=== PATIENT | female | born 1965 | race Caucasian/White ===

== ENCOUNTER → 2017-02-24 07:01 | Day surgery (SDC) | payer SELFPAY ==
[~2017-02-24 07:01] MED LIST: Bacitracin IV* 50,000 UNITS INJ ONE; Buffered Lidocaine 1% SYRIN* 3 ML/SYR SYRINGE INTRADERM ONE; Dexamethasone IV* 4 MG/ML 1 ML (4 MG) ONE; DiMENhydriNATE IV* 50 MG/ML VIAL IV PUSH PRN; Famotidine IV* 10 MG/ML 2 ML (20 mg) IV ONE; Famotidine IV* 10 MG/ML 2 ML (20 mg) ONE; Gentamicin ADULT (*) 40 MG/ML VIAL ONE; HYDROcodone/ACETAMIN 5-325 MG* 1 TAB ONE; HYDROmorphone* 1 MG/ML 1 ML SYR IV PRN; KETAMINE HCL* 50 MG/ML 10 ML VIAL ONE; Lidocaine 1% INJ* 10 MG/ML 30 ML SDV ONE; Lidocaine 2% PF* 5 ML VIAL ONE; Midazolam* 1 MG/ML 2 ML VIAL (2 MG) ONE; Ondansetron INJ* 2 MG/ML VIAL ONE; Propofol* 10 MG/ML 20 ML BTL IV PUSH ONE; Propofol* 500 MG/50 ML BTL ONE; Scopolamine 1.5 mg* PATCH ONE; ceFAZolin 2 GM PREMIX(*) 2 GM/50 ML BAG IVPB ONE; ceFAZolin VIAL(*) 1 GM VIAL ONE; fentaNYL* 50 MCG/ML 2 ML VIAL (100 MCG VIAL) IV PRN; fentaNYL* 50 MCG/ML 2 ML VIAL (100 MCG VIAL) ONE
[2017-02-24] MEDS: Dexamethasone IV* 4 MG/ML 1 ML (4 MG) IV SLOW PU ONE ×2 (07:29→07:45)
[2017-02-24 13:54] VITALS: BP 128/84
== END | disposition home or self-care (01) ==
LOC: OREAST 07:01
PROVIDERS: ATTEND Plastic Surgery
DX: Z41.1 Encounter for cosmetic surgery (principal); I34.1 Nonrheumatic mitral (valve) prolapse
CPT/HCPCS: A9270-GY; J0690; J1100; J1580; J2001; J2250; J2405; J2704; J3010

== ENCOUNTER 2018-01-19 06:35 | Day surgery (SDC) | payer SELFPAY ==
[~2018-01-19 06:35] MED LIST changes: -Bacitracin IV* 50,000 UNITS INJ ONE; +Buffered Lidocaine 0.9% SYRIN* 5 ML/SYR SYRINGE INTRADERM ONE; -Buffered Lidocaine 1% SYRIN* 3 ML/SYR SYRINGE INTRADERM ONE; -Dexamethasone IV* 4 MG/ML 1 ML (4 MG) ONE; -DiMENhydriNATE IV* 50 MG/ML VIAL IV PUSH PRN; -Gentamicin ADULT (*) 40 MG/ML VIAL ONE; -HYDROcodone/ACETAMIN 5-325 MG* 1 TAB ONE; -HYDROmorphone* 1 MG/ML 1 ML SYR IV PRN; -KETAMINE HCL* 50 MG/ML 10 ML VIAL ONE; -Lidocaine 1% INJ* 10 MG/ML 30 ML SDV ONE; -Lidocaine 2% PF* 5 ML VIAL ONE; -Midazolam* 1 MG/ML 2 ML VIAL (2 MG) ONE; -Ondansetron INJ* 2 MG/ML VIAL ONE; -Propofol* 10 MG/ML 20 ML BTL IV PUSH ONE; -Propofol* 500 MG/50 ML BTL ONE; -Scopolamine 1.5 mg* PATCH ONE; -ceFAZolin 2 GM PREMIX(*) 2 GM/50 ML BAG IVPB ONE; -ceFAZolin VIAL(*) 1 GM VIAL ONE; -fentaNYL* 50 MCG/ML 2 ML VIAL (100 MCG VIAL) IV PRN; -fentaNYL* 50 MCG/ML 2 ML VIAL (100 MCG VIAL) ONE
[2018-01-19] MEDS ORDERED: Scopolamine 1.5 mg* PATCH ONE (06:43)
[2018-01-19] MEDS ORDERED: Ondansetron INJ* 2 MG/ML VIAL ONE (06:43)
[2018-01-19] MEDS ORDERED: Dexamethasone IV* 4 MG/ML 1 ML (4 MG) ONE (06:43)
[2018-01-19] MEDS ORDERED: ceFAZolin 2 GM PREMIX (*) 2 GM/50 ML BAG IVPB ONE (06:43)
[2018-01-19] MEDS ORDERED: Midazolam* 1 MG/ML 5 ML VIAL (5 MG) ONE (07:22)
[2018-01-19] MEDS ORDERED: fentaNYL* 50 MCG/ML 2 ML VIAL (100 MCG VIAL) ONE ×3 (07:22→11:11)
[2018-01-19] MEDS ORDERED: Bupivacaine 0.25% SDV* 30 ML ONE (07:31)
[2018-01-19] MEDS ORDERED: Lidocaine 1% MPF wEPI 200,000* 30 ML SDV ONE (07:32)
[2018-01-19] MEDS ORDERED: Propofol* 10 MG/ML 20 ML BTL IV PUSH ONE (07:48)
[2018-01-19] MEDS ORDERED: Lidocaine 2% PF * 5 ML VIAL ONE (07:48)
[2018-01-19] MEDS ORDERED: DiMENhydriNATE IV* 50 MG/ML VIAL IV PUSH PRN (09:51)
[2018-01-19] MEDS ORDERED: oxyCODONE TAB* 5 MG TAB PO PRN (09:51)
[2018-01-19] MEDS ORDERED: Acetaminophen TAB* 325 MG PO PRN (09:51)
[2018-01-19] MEDS ORDERED: HYDROmorphone INJ* 1 MG/ML CARPUJECT SYRINGE IV PRN (09:51)
[2018-01-19] MEDS ORDERED: Naloxone* 0.4 MG/ML 1 ML VIAL IV PRN (09:51)
[2018-01-19] MEDS ORDERED: Acetaminophen TAB* 325 MG ONE (11:45)
[2018-01-19] MEDS ORDERED: oxyCODONE ORAL.SOLN* 5 MG/5 ML UDC ONE (12:02)
[2018-01-19 12:34] VITALS: BP 143/86
== END 2018-01-19 12:35 | disposition home or self-care (01) ==
LOC: OREAST 06:35
PROVIDERS: ATTEND Plastic Surgery
DX: N64.81 Ptosis of breast (principal); Z98.890 Other specified postprocedural states; I34.1 Nonrheumatic mitral (valve) prolapse; F41.9 Anxiety disorder, unspecified
CPT/HCPCS: A9270-GY; J0690; J1100; J2001; J2250; J2405; J2704; J3010